=== PATIENT | male | born 1950 | race Caucasian/White ===

== ENCOUNTER 2017-02-14 08:00 | Outpatient (CLI) | payer MEDICARE, OTHER ==
[2017-02-15 12:05] LABS: BASOPHILS # (AUTO) 0.1 10^3/uL (0.0-0.1); BASOPHILS % (AUTO) 0.8 %; EOSINOPHILS # (AUTO) 0.2 10^3/uL (0.0-0.7); EOSINOPHILS % (AUTO) 2.2 %; HCT - HEMATOCRIT 51.2 % (42.0-52.0); HGB - HEMOGLOBIN 16.8 g/dL (14.0-18.0); LYMPHOCYTES # (AUTO) 1.6 10^3/uL (1.5-3.5); LYMPHOCYTES % (AUTO) 17.9 %; MEAN CORPUSCULAR HEMOGLOBIN 31.1 pg (27.0-31.0); MEAN CORPUSCULAR HGB CONC 32.8 g/dL (32.0-36.0); MEAN CORPUSCULAR VOLUME 94.8 fL (80.0-94.0); MEAN PLATELET VOLUME 8.9 fL (7.4-11.4); MONOCYTES # (AUTO) 0.9 10^3/uL (0.0-1.0); MONOCYTES % (AUTO) 10.3 %; NEUTROPHILS # (AUTO) 6.3 10^3/uL (1.5-6.6); NEUTROPHILS % (AUTO) 68.8 %; NUCLEATED RED BLOOD CELLS AUTO 0.1 /100WBC; RED CELL DISTRIBUTION WIDTH 14.7 % (12.0-15.0); UNCORRECTED WHITE BLOOD COUNT 9.2 x10^3/uL; WHITE BLOOD COUNT 9.2 x10^3/uL (4.8-10.8)
[2017-02-15 12:10] LABS: ALBUMIN/GLOBULIN RATIO 1.1 (1.0-2.2); BILIRUBIN,TOTAL 0.8 mg/dL (0.2-1.0); CALCIUM 9.7 mg/dL (8.5-10.3); CREATININE 1.5 mg/dL (0.6-1.2); INR 1.1 (0.8-1.2); POTASSIUM 5.1 mmol/L (3.5-5.0); PT - PROTHROMBIN TIME 12.5 secs (9.9-12.6); TOTAL PROTEIN 7.5 g/dL (6.7-8.2)
[2017-02-15 12:37] LABS: PARTIAL THROMBOPLASTIN TIME 26.8 secs (24.9-33.3)
== END 2017-02-14 08:01 | disposition home or self-care (01) ==
LOC: LAB.F 08:00
PROVIDERS: ATTEND Internal Medicine
DX: R51 Headache (principal)
CPT/HCPCS: 36415; 80053; 85025; 85610; 85730

== ENCOUNTER 2017-02-15 11:52 | Outpatient (CLI) | payer MEDICARE ==
--- NOTE | 2017-02-15 12:43 | CT Report ---
CT BRAIN WITHOUT CONTRAST: 02/15/2017 CLINICAL INDICATION: Occipital headache. TECHNIQUE: Axial CT images of the brain were obtained without intravenous contrast. No previous CT is available for comparison. In accordance with CT protocol optimization, one or more of the following dose reduction techniques w ere utilized for this exam: automated exposure control, adjustment of mA and/or KV based on patient size, or use of iterative reconstructive technique. FINDINGS: The ventricles and sulci are normal in size, shape, and configuration. The basilar cister ns are patent. There is no evidence of hemorrhage, mass effect, or midline shift. The visualized or bital contents are unremarkable. There is mucosal thickening in the left maxillary sinus and ethmoid air cells, compatible with chronic sinus disease. IMPRESSION: CHRONIC LEFT-SIDED SINUS DISEASE. OTHERWISE, NORMAL CT OF THE BRAIN WITHOUT CONTRAST. JOB #: [id number] EXT JOB #:[id number]
== END 2017-02-15 11:53 | disposition home or self-care (01) ==
LOC: DI 11:52
PROVIDERS: ATTEND Internal Medicine
DX: R51 Headache (principal); J32.9 Chronic sinusitis, unspecified
CPT/HCPCS: 70450

== ENCOUNTER 2017-05-12 14:16 | Outpatient (CLI) | payer MEDICARE ==
[2017-05-12 14:51] LABS: CALCIUM 9.5 mg/dL (8.5-10.3); CREATININE 1.3 mg/dL (0.6-1.2); POTASSIUM 4.7 mmol/L (3.5-5.0)
== END 2017-05-12 14:17 | disposition home or self-care (01) ==
LOC: LAB 14:16
PROVIDERS: ATTEND Internal Medicine
DX: R79.89 Other specified abnormal findings of blood chemistry (principal)
CPT/HCPCS: 36415; 80048

== ENCOUNTER 2019-09-23 13:24 | Emergency (ER) | payer MEDICARE ==
--- NOTE | 2019-09-23 14:16 | ED Physician Documentation ---
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 He has a longstanding pornography addiction and a few days ago relapsed into that habit. His of 30 years found out and requested divorce. Today he drove to a park and in a suicide attempt tried to cut his left wrist but after a couple of hours was unable to find the radial artery. He drove home and subsequently told his who brought him here for stitching.) Review of Systems Ten Systems: 10 systems reviewed and negative Constitutional: reports: Reviewed and negative Nose: reports: Reviewed and negative Cardiac: reports: Reviewed and negative Respiratory: reports: Reviewed and negative PD PAST MEDICAL HISTORY - Past Medical History Past Medical History: Yes Cardiovascular: Hypertension, Arrhythmia Respiratory: None Neuro: None Endocrine/Autoimmune: None GI: None : None HEENT: None Psych: Depression Musculoskeletal: Gout Derm: None - Past Surgical History Past Surgical History: Yes Cardiovascular: Pacemaker Derm: Skin cancer surgery - Present Medications Home Medications: Ambulatory Orders Medication Instructions Recorded Confirmed Lisinopril 20 mg PO DAILY 02/25/14 12/09/15 Metoprolol Succinate [Toprol Xl] 25 mg PO ONCE 02/25/14 12/09/15 Sertraline HCl [Zoloft] 25 mg PO DAILY 02/25/14 12/09/15 allopurinoL [Allopurinol] 100 mg PO DAILY 02/25/14 12/09/15 traZODone [Desyrel] 50 mg ORAL DAILY 01/27/15 12/09/15 metFORMIN [Glucophage] 1,000 mg ORAL DAILY 12/09/15 12/09/15 - Allergies Allergies/Adverse Reactions: Allergies Allergy/AdvReac Type Severity Reaction Status Date / Time No Known Drug Allergies Allergy Verified 09/23/19 13:33 - Social History Does the pt smoke?: No Smoking Status: Never smoker Does the pt drink ETOH?: Yes Does the pt have substance abuse?: Yes - Immunizations Immunizations are current?: Yes - POLST Patient has POLST: No PD ED PE NORMAL - Vitals Vital signs reviewed: Yes - General General: Alert and oriented X 3, No acute distress - HEENT HEENT: PERRL, EOMI - Neck Neck: Supple, no meningeal sign, No bony TTP - Cardiac Cardiac: RRR, No murmur - Respiratory Respiratory: No respiratory distress, Clear bilaterally - Abdomen Abdomen: Normal bowel sounds, Soft, Non tender - Back Back: No CVA TTP, No spinal TTP - Derm Derm: Normal color, Warm and dry - Extremities Extremities: Other (There are 2 fairly deep parallel incisions in the left wrist. He was fairly central and therefore to medial to have hit the radial artery. Radial pulses normal. Flexion in all the digits is normal and romario rovascular function in all the fingers is normal.) - Neuro Neuro: Alert and oriented X 3, No motor deficit, No sensory deficit, Normal speech Results - Vitals Vitals: Vital Signs - 24 hr 09/23/19 13:33 Temperature 36.8 C Heart Rate 80 Respiratory 16 Rate Blood Pressure 170/84 H O2 Saturation 100 Oxygen O2 Source Room air - EKG (time done) 1408 Rate: Rate (enter#) (72) Rhythm: Paced Computer interpretation: Agree with computer - Labs Labs: Laboratory Tests 09/23/19 09/23/19 09/23/19 14:12 14:12 14:12 WBC 5.8 RBC 5.28 Hgb 16.8 Hct 48.9 MCV 92.6 MCH 31.8 H MCHC 34.4 RDW 13.2 Plt Count 197 MPV 10.0 Neut # (Auto) 4.7 Lymph # (Auto) 0.7 L [place] # (Auto) 0.4 Eos # (Auto) 0.0 Baso # (Auto) 0.0 Absolute Nucleated RBC 0.00 Nucleated RBC % 0.0 Sodium 134 L Potassium 5.0 Chloride 103 Carbon Dioxide 22 Anion Gap 9.0 BUN 30 H Creatinine 1.4 H Estimated GFR (MDRD) 51 L Glucose 108 H Calcium 8.6 Total Bilirubin 0.9 AST 41 ALT 43 Alkaline Phosphatase 55 Total Protein 7.7 Albumin 4.4 Globulin 3.3 Albumin/Globulin Ratio 1.3 Lipase 48 TSH 6.33 H Urine Color Urine Clarity Urine pH Ur Specific [place] Urine Protein Urine Glucose (UA) Urine Ketones Urine Occult Blood Urine Nitrite Urine Bilirubin Urine Urobilinogen Ur Leukocyte Esterase Urine RBC Urine WBC Ur Squamous Epith Cells Urine Bacteria Ur Microscopic Review Urine Culture Comments Salicylates < 6.0 Urine Opiates Screen Ur Oxycodone Screen Urine Methadone Screen Ur Propoxyphene Screen Acetaminophen < 10 L Ur Barbiturates Screen Ur Tricyclics Screen Ur Phencyclidine Scrn Ur Amphetamine Screen U Methamphetamines Scrn U Benzodiazepines Scrn Urine Cocaine Screen U Cannabinoids Screen Ethyl Alcohol < 5.0 09/23/19 14:20 WBC RBC Hgb Hct MCV MCH MCHC RDW Plt Count MPV Neut # (Auto) Lymph # (Auto) [place] # (Auto) Eos # (Auto) Baso # (Auto) Absolute Nucleated RBC Nucleated RBC % Sodium Potassium Chloride Carbon Dioxide Anion Gap BUN Creatinine Estimated GFR (MDRD) Glucose Calcium Total Bilirubin AST ALT Alkaline Phosphatase Total Protein Albumin Globulin Albumin/Globulin Ratio Lipase TSH Urine Color YELLOW Urine Clarity CLEAR Urine pH 5.5 Ur Specific [place] >=1.030 H Urine Protein 100 H Urine Glucose (UA) NEGATIVE Urine Ketones NEGATIVE Urine Occult Blood TRACE-INTA Urine Nitrite NEGATIVE Urine Bilirubin NEGATIVE Urine Urobilinogen 0.2 (NORMAL) Ur Leukocyte Esterase NEGATIVE Urine RBC None Seen Urine WBC 0-3 Ur Squamous Epith Cells RARE Squamous Urine Bacteria None Seen Ur Microscopic Review INDICATED Urine Culture Comments NOT INDICATED Salicylates Urine Opiates Screen NEGATIVE Ur Oxycodone Screen NEGATIVE Urine Methadone Screen NEGATIVE Ur Propoxyphene Screen NEGATIVE Acetaminophen Ur Barbiturates Screen NEGATIVE Ur Tricyclics Screen NEGATIVE Ur Phencyclidine Scrn NEGATIVE Ur Amphetamine Screen NEGATIVE U Methamphetamines Scrn NEGATIVE U Benzodiazepines Scrn NEGATIVE Urine Cocaine Screen NEGATIVE U Cannabinoids Screen NEGATIVE Ethyl Alcohol Procedures - Laceration (location) left wrist Length in cm: 7 Wound type: Other (Parallel lacerations on the anterior flexor surface of the left wrist, one was 4 cm and one was 3 cm.) Neurovascular status: Sensory intact, Motor intact, Vascular intact Tendon involvement: Tendon intact Anesthesia: Lidocaine 1%, With bicarb Wound Preparation: Irrigated copiously NS Skin layer closure: Nylon (4-0), Running Other: Tetanus booster given Complexity: Simple PD MEDICAL DECISION MAKING - ED course ED course: Patient seen by STEPHEN Knight. She agrees that he is high risk but does not plan on detaining this gentleman. Close outpatient follow-up was arranged. Departure - Departure Disposition: 01 Home, Self Care Clinical Impression: Suicide attempt Wrist laceration Qualifiers: Encounter type: initial encounter Laterality: left Qualified Code(s): S61.512A - Laceration without foreign body of left wrist, initial encounter Condition: Good Record reviewed to determine appropriate education?: Yes Instructions: ED Stress React, ED Laceration Hand Comments: Come back for any signs of infection which would include: Redness, swelling, drainage, increased pain, or fevers. You can wash it soap and water. Keep it covered and moist with bacitracin ointment which is available over the counter; avoid neosporin. Follow-up with your physician in 10-14 days for suture removal. Follow-up with your therapist tomorrow as you are planning to do. If you develop new or worsening symptoms please either return immediately for reevaluation or call the crisis line at [phone].
[2019-09-23 14:23] LABS: BASOPHILS % (AUTO) 0.3 %; EOSINOPHILS % (AUTO) 0.5 %; HGB - HEMOGLOBIN 16.8 g/dL (14.0-18.0); LYMPHOCYTES # (AUTO) 0.7 10^3/uL (1.5-3.5); LYMPHOCYTES % (AUTO) 12.7 %; MEAN CORPUSCULAR HEMOGLOBIN 31.8 pg (27.0-31.0); MEAN CORPUSCULAR HGB CONC 34.4 g/dL (32.0-36.0); MEAN CORPUSCULAR VOLUME 92.6 fL (80.0-94.0); MONOCYTES # (AUTO) 0.4 10^3/uL (0.0-1.0); MONOCYTES % (AUTO) 6.3 %; NEUTROPHILS # (AUTO) 4.7 10^3/uL (1.5-6.6); NEUTROPHILS % (AUTO) 79.9 %; PLT - PLATELET COUNT 197 10^3/uL (130-450); RED BLOOD COUNT 5.28 10^6/uL (4.70-6.10); RED CELL DISTRIBUTION WIDTH 13.2 % (12.0-15.0); WHITE BLOOD COUNT 5.8 x10^3/uL (4.8-10.8)
[2019-09-23] MEDS: BUFFERED LIDOCAINE 10 ML SYRINGE SUBQ STA (14:25)
[2019-09-23 14:29] LABS: MUDS CUTOFF CONCENTRATIONS CUTOFF CONC BELOW:
[2019-09-23 14:34] LABS: BILIRUBIN,URINE NEGATIVE (NEGATIVE); GLUCOSE, URINE (UA) NEGATIVE (NEGATIVE); KETONES,URINE (UA) NEGATIVE (NEGATIVE); LEUKOCYTE ESTERASE, URINE NEGATIVE (NEGATIVE); NITRITE,URINE NEGATIVE (NEGATIVE); OCCULT BLOOD,URINE TRACE-INTA (NEGATIVE); PH,URINE 5.5 PH (5.0-7.5); PROTEIN,URINE 100 mg/dL (NEGATIVE); UROBILINOGEN,URINE 0.2 (NORMAL) E.U./dL (NORMAL)
[2019-09-23 14:38] LABS: ACETAMINOPHEN < 10 ug/mL (10-30); ALBUMIN 4.4 g/dL (3.2-5.5); ALBUMIN/GLOBULIN RATIO 1.3 (1.0-2.2); ALKALINE PHOSPHATASE 55 IU/L (42-121); ALT ALANINE AMINOTRANSFERASE 43 IU/L (10-60); AST ASPARTATE AMINOTRANSFERASE 41 IU/L (10-42); BILIRUBIN,TOTAL 0.9 mg/dL (0.2-1.0); BUN - BLOOD UREA NITROGEN 30 mg/dL (6-20); CALCIUM 8.6 mg/dL (8.5-10.3); CARBON DIOXIDE - CO2 22 mmol/L (21-32); CHLORIDE 103 mmol/L (101-111); CREATININE 1.4 mg/dL (0.6-1.2); GLUCOSE 108 mg/dL (70-100); LIPASE 48 U/L (22-51); SALICYLATE < 6.0 mg/dL; SODIUM 134 mmol/L (135-145); TOTAL PROTEIN 7.7 g/dL (6.7-8.2)
[2019-09-23 14:40] LABS: CLARITY,URINE CLEAR (CLEAR)
[2019-09-23 14:42] LABS: AMPHETAMINE SCREEN,URINE NEGATIVE (NEGATIVE); BENZODIAZEPINES SCREEN, URINE NEGATIVE (NEGATIVE); COCAINE SCREEN URINE NEGATIVE (NEGATIVE); METHADONE SCREEN, URINE NEGATIVE (NEGATIVE); METHAMPHETAMINES SCREEN, URINE NEGATIVE (NEGATIVE); OPIATE SCREEN, URINE NEGATIVE (NEGATIVE); OXYCODONE SCREEN, URINE NEGATIVE (NEGATIVE); PROPOXYPHENE SCREEN, URINE NEGATIVE (NEGATIVE); TRICYCLIC ANTIDEPRESSANT,URINE NEGATIVE (NEGATIVE)
[2019-09-23 14:47] LABS: BACTERIA,URINE None Seen /HPF (None Seen); RBC,URINE None Seen /HPF (0-5); SQUAMOUS EPITHELIAL CELL,UR RARE Squamous (<= Few)
[2019-09-23] MEDS: TETANUS/DIPHTHERIA/PERTUSSIS 0.5 ML SYRINGE IM ONE (16:30)
[2019-09-23 17:42] VITALS: BP 155/78
== END 2019-09-23 17:41 | disposition home or self-care (01) ==
LOC: ED 13:24
DX: S61.512A Laceration without foreign body of left wrist, initial encounter (principal); X78.1XXA Intentional self-harm by knife, initial encounter; Y92.830 Public park as the place of occurrence of the external cause; Z95.0 Presence of cardiac pacemaker; I10 Essential (primary) hypertension; I49.9 Cardiac arrhythmia, unspecified
CPT/HCPCS: 12002; 36415; 80053; 80306; 80307; 80320; 80329; 81001; 81003; 83690; 84443; 85025; 87086; 90471; 93005; 99284

== ENCOUNTER 2019-11-09 10:23 | Outpatient (CLI) | payer MEDICARE ==
[2019-11-09 10:52] LABS: ALBUMIN/GLOBULIN RATIO 1.2 (1.0-2.2); ALKALINE PHOSPHATASE 74 IU/L (42-121); ALT ALANINE AMINOTRANSFERASE 36 IU/L (10-60); AST ASPARTATE AMINOTRANSFERASE 38 IU/L (10-42); BILIRUBIN,TOTAL 0.7 mg/dL (0.2-1.0); BUN - BLOOD UREA NITROGEN 28 mg/dL (6-20); CALCIUM 9.2 mg/dL (8.5-10.3); CARBON DIOXIDE - CO2 26 mmol/L (21-32); CHLORIDE 105 mmol/L (101-111); CHOL/HDL RATIO 4.3 (<5.0); CHOLESTEROL 168 mg/dL; CREATININE 1.3 mg/dL (0.6-1.2); GLUCOSE 97 mg/dL (70-100); HDL CHOLESTEROL 39 mg/dL; LDL CHOLESTEROL,CALCULATED 101 mg/dL; LDL/HDL RATIO 2.6 (<3.6); SODIUM 139 mmol/L (135-145); TOTAL PROTEIN 7.4 g/dL (6.7-8.2); URIC ACID 5.2 mg/dL (2.6-7.2); VLDL CHOLESTEROL 28 mg/dL
[2019-11-09 10:53] LABS: HB2 TOTAL 17.7 g/dL; HEMOGLOBIN A1C 0.7 g/dL; HEMOGLOBIN A1C % 5.8 % (4.6-6.2)
== END 2019-11-09 10:24 | disposition home or self-care (01) ==
LOC: LAB 10:23
PROVIDERS: ATTEND Internal Medicine
DX: M10.9 Gout, unspecified (principal); E11.40 Type 2 diabetes mellitus with diabetic neuropathy, unspecified
CPT/HCPCS: 36415; 80053; 80061; 83036; 83721; 84550

== ENCOUNTER 2021-04-03 13:11 | Outpatient (CLI) | payer MEDICARE | END 2021-04-03 13:12 | disposition home or self-care (01) | LOC: COV 13:11 | PROVIDERS: ATTEND Dermatology MOHS-Micrographic Surgery | DX: Z01.812 Encounter for preprocedural laboratory examination (principal); Z20.822 Contact with and (suspected) exposure to COVID-19 ==

== ENCOUNTER 2021-06-16 15:18 | Outpatient (CLI) | payer MEDICARE ==
--- NOTE | 2021-06-16 16:33 | Ultrasound Report ---
PROCEDURE: Duplex Ext Veins Left INDICATIONS: LEFT CALF PAIN TECHNIQUE: Real-time imaging, as well as color and pulse Doppler interrogation, were performed of the lower extr emity deep veins from the inguinal ligament to the popliteal fossa. COMPARISON: None. FINDINGS: The deep veins are normally compressible, and free of intraluminal thrombus. Color and pu lse Doppler demonstrate normal phasic intraluminal flow. There is normal augmentation response to di stal compression maneuver. IMPRESSION: No evidence of DVT in visualized left lower extremity veins. Reviewed by: Samson Smith MD on 06/16/2021 4:32 PM PST Approved by: Samson Smith MD on 06/16/2021 4:32 PM PST Station ID: [id number]
== END 2021-06-16 15:19 | disposition home or self-care (01) ==
LOC: DI 15:18
PROVIDERS: ATTEND Internal Medicine
DX: M79.662 Pain in left lower leg (principal)

== ENCOUNTER 2021-11-02 07:26 | Emergency (ER) | payer MEDICARE ==
[2021-11-02 08:13] LABS: BASOPHILS % (AUTO) 0.5 %; EOSINOPHILS % (AUTO) 0.7 %; HCT - HEMATOCRIT 47.6 % (42.0-52.0); HGB - HEMOGLOBIN 16.6 g/dL (14.0-18.0); LYMPHOCYTES # (AUTO) 0.7 10^3/uL (1.5-3.5); LYMPHOCYTES % (AUTO) 15.9 %; MEAN CORPUSCULAR HEMOGLOBIN 30.9 pg (27.0-31.0); MEAN CORPUSCULAR HGB CONC 34.9 g/dL (32.0-36.0); MEAN CORPUSCULAR VOLUME 88.5 fL (80.0-94.0); MEAN PLATELET VOLUME 10.4 fL (7.4-11.4); MONOCYTES # (AUTO) 0.5 10^3/uL (0.0-1.0); MONOCYTES % (AUTO) 12.3 %; NEUTROPHILS % (AUTO) 70.1 %; PLT - PLATELET COUNT 176 10^3/uL (130-450); RED BLOOD COUNT 5.38 10^6/uL (4.70-6.10); RED CELL DISTRIBUTION WIDTH 12.6 % (12.0-15.0); WHITE BLOOD COUNT 4.2 x10^3/uL (4.8-10.8)
[2021-11-02 08:22] LABS: INFECTIOUS MONONUCLEOSIS NEGATIVE (Negative)
--- NOTE | 2021-11-02 08:23 | ED Physician Documentation ---
History of Present Illness - Stated complaint Stated Complaint: FATIGUE - Chief complaint Chief Complaint: General - History obtained from History obtained from: Patient - Additonal information Additional information: The patient comes to the emergency department chief complaint of fatigue. He states that has been coming up over about the last week and that now, he feels so exhausted during the day that he feels like he just needs to lay down in his bed. The patient denies any lightheadedness or dizziness. He is not short of breath. He has not had any pain anywhere. The patient states that initially, he would feel the exhaustion after being physically active but now, he just feels tired all the time. He denies any nausea or vomiting. No diarrhea. He drinks plenty of water every day. He is a diabetic and states that he has been stable on metformin as far as he knows for a long time. He does not check his sugars regularly, however, so he is not sure how they have been running. The patient denies any fevers or chills. No cough or other signs of illness. He states that nobody else has been sick that he has been exposed to and he lives alone. No other complaints at this time. Review of Systems Ten Systems: 10 systems reviewed and negative Constitutional: reports: Fatigue Eyes: reports: Reviewed and negative Ears: reports: Reviewed and negative Nose: reports: Reviewed and negative Throat: reports: Reviewed and negative Cardiac: reports: Reviewed and negative Respiratory: reports: Reviewed and negative GI: reports: Reviewed and negative : reports: Reviewed and negative Skin: reports: Reviewed and negative Musculoskeletal: reports: Reviewed and negative Neurologic: reports: Reviewed and negative Psychiatric: reports: Reviewed and negative Endocrine: reports: Reviewed and negative Immunocompromised: reports: Reviewed and negative PD PAST MEDICAL HISTORY - Past Medical History Past Medical History: Yes Cardiovascular: Hypertension, Arrhythmia Respiratory: Sleep apnea, CPAP use Neuro: None Endocrine/Autoimmune: Type 2 diabetes GI: None : None HEENT: None Psych: Depression Musculoskeletal: Gout Derm: None - Past Surgical History Past Surgical History: Yes Ortho: Hip replacement Cardiovascular: Pacemaker Derm: Skin cancer surgery - Present Medications Home Medications: Ambulatory Orders Medication Instructions Recorded Confirmed Lisinopril 20 mg PO DAILY 02/25/14 11/02/21 Sertraline HCl [Zoloft] 25 mg PO DAILY 02/25/14 11/02/21 allopurinoL [Allopurinol] 100 mg PO DAILY 02/25/14 11/02/21 traZODone [Desyrel] 50 mg ORAL DAILY PM 01/27/15 11/02/21 metFORMIN [Glucophage] 1,000 mg ORAL DAILY 12/09/15 11/02/21 Atorvastatin [Lipitor] 20 mg ORAL DAILY PM 11/02/21 11/02/21 Levothyroxine [Synthroid] 125 mcg PO QDAC #90 tablet 11/02/21 - Allergies Allergies/Adverse Reactions: Allergies Allergy/AdvReac Type Severity Reaction Status Date / Time No Known Drug Allergies Allergy Verified 11/02/21 07:35 - Social History Does the pt smoke?: No Smoking Status: Never smoker Does the pt drink ETOH?: Yes Does the pt have substance abuse?: Yes - Immunizations Immunizations are current?: Yes - POLST Patient has POLST: No PD ED PE NORMAL - Vitals Vital signs reviewed: Yes - General General: Alert and oriented X 3, No acute distress, Well developed/nourished - HEENT HEENT: Atraumatic, PERRL, EOMI, Moist mucous membranes - Neck Neck: Supple, no meningeal sign - Cardiac Cardiac: RRR, No murmur, Strong equal pulses - Respiratory Respiratory: No respiratory distress, Clear bilaterally - Abdomen Abdomen: Soft, Non tender, Non distended - Derm Derm: Normal color, Warm and dry, No rash - Extremities Extremities: No deformity, No edema - Neuro Neuro: Alert and oriented X 3, food beverage supervisor 2-12 intact, Normal speech - Psych Psych: Normal mood, Normal affect Results - Vitals Vitals: Vital Signs - 24 hr 11/02/21 11/02/21 08:35 09:11 Heart Rate 70 70 Respiratory 12 10 L Rate Blood Pressure 139/70 H 133/68 H O2 Saturation 98 97 Oxygen O2 Source Room air - Labs Labs: Laboratory Tests 11/02/21 11/02/21 11/02/21 08:00 08:00 08:00 WBC 4.2 L RBC 5.38 Hgb 16.6 Hct 47.6 MCV 88.5 MCH 30.9 MCHC 34.9 RDW 12.6 Plt Count 176 MPV 10.4 Neut # (Auto) 3.0 Lymph # (Auto) 0.7 L [place] # (Auto) 0.5 Eos # (Auto) 0.0 Baso # (Auto) 0.0 Absolute Nucleated RBC 0.00 Nucleated RBC % 0.0 Sodium 135 Potassium 4.9 Chloride 99 L Carbon Dioxide 22 Anion Gap 14.0 H BUN 28 H Creatinine 1.9 H Estimated GFR (MDRD) 35 L Glucose 102 H Calcium 9.2 Total Bilirubin 1.0 AST 42 ALT 39 Alkaline Phosphatase 56 Total Protein 7.4 Albumin 4.2 Globulin 3.2 Albumin/Globulin Ratio 1.3 Lipase 58 H TSH Urine Color Urine Clarity Urine pH Ur Specific [place] Urine Protein Urine Glucose (UA) Urine Ketones Urine Occult Blood Urine Nitrite Urine Bilirubin Urine Urobilinogen Ur Leukocyte Esterase Urine RBC Urine WBC Ur Squamous Epith Cells Urine Bacteria Ur Microscopic Review Urine Culture Comments Nasal Adenovirus (PCR) Nasal B. parapertussis DNA (PCR) Nasal Coronavir 229E PCR Nasal Coronavir HKU1 PCR Nasal Coronavir NL63 PCR Nasal Coronavir OC43 PCR Nasal Enterovir/Rhinovir PCR Nasal Influenza B PCR Nasal Influenza A PCR Nasal Parainfluen 1 PCR Nasal Parainfluen 2 PCR Nasal Parainfluen 3 PCR Nasal Parainfluen 4 PCR Nasal RSV (PCR) Nasal B.pertussis DNA PCR Nasal C.pneumoniae (PCR) Richard Human Metapneumo PCR Nasal M.pneumoniae (PCR) Nasal SARS-CoV-2 (PCR) Infectious [place] Assay NEGATIVE 11/02/21 11/02/21 11/02/21 08:00 08:15 08:20 WBC RBC Hgb Hct MCV MCH MCHC RDW Plt Count MPV Neut # (Auto) Lymph # (Auto) [place] # (Auto) Eos # (Auto) Baso # (Auto) Absolute Nucleated RBC Nucleated RBC % Sodium Potassium Chloride Carbon Dioxide Anion Gap BUN Creatinine Estimated GFR (MDRD) Glucose Calcium Total Bilirubin AST ALT Alkaline Phosphatase Total Protein Albumin Globulin Albumin/Globulin Ratio Lipase TSH 8.17 H Urine Color DARK YELLOW Urine Clarity CLEAR Urine pH 5.5 Ur Specific [place] 1.020 Urine Protein 100 H Urine Glucose (UA) NEGATIVE Urine Ketones NEGATIVE Urine Occult Blood SMALL H Urine Nitrite NEGATIVE Urine Bilirubin NEGATIVE Urine Urobilinogen 0.2 (NORMAL) Ur Leukocyte Esterase NEGATIVE Urine RBC 0-5 Urine WBC 0-3 Ur Squamous Epith Cells FEW Squamous Urine Bacteria Few Ur Microscopic Review INDICATED Urine Culture Comments NOT INDICATED Nasal Adenovirus (PCR) NOT DETECTED Nasal B. parapertussis DNA (PCR) NOT DETECTED Nasal Coronavir 229E PCR NOT DETECTED Nasal Coronavir HKU1 PCR NOT DETECTED Nasal Coronavir NL63 PCR NOT DETECTED Nasal Coronavir OC43 PCR NOT DETECTED Nasal Enterovir/Rhinovir PCR NOT DETECTED Nasal Influenza B PCR NOT DETECTED Nasal Influenza A PCR NOT DETECTED Nasal Parainfluen 1 PCR NOT DETECTED Nasal Parainfluen 2 PCR NOT DETECTED Nasal Parainfluen 3 PCR NOT DETECTED Nasal Parainfluen 4 PCR NOT DETECTED Nasal RSV (PCR) NOT DETECTED Nasal B.pertussis DNA PCR NOT DETECTED Nasal C.pneumoniae (PCR) NOT DETECTED Richard Human Metapneumo PCR NOT DETECTED Nasal M.pneumoniae (PCR) NOT DETECTED Nasal SARS-CoV-2 (PCR) NOT DETECTED Infectious [place] Assay - Rads (name of study) Chest x-ray Radiology: Final report received, EMP read indepedently, See rad report (Negative) CT abdomen pelvis Radiology: Final report received, EMP read indepedently, See rad report (Negative) PD MEDICAL DECISION MAKING - ED course Complexity details: reviewed results, re-evaluated patient, considered differential, d/w patient ED course: The patient's symptoms were very nonspecific and so he was worked up broadly to try to determine what was causing him to feel so fatigued.Patient was given a liter 0.9 normal saline. His laboratory studies did show a significantly elevated TSH over 8. He also had some mild renal insufficiency. Chest x-ray and CT of the abdomen pelvis showed no evidence of malignancy. I discussed these findings with the patient and have given him a dose of levothyroxine here. I have also prescribed the same for the patient and emphasized the importance of follow-up. Departure - Departure Disposition: 01 Home, Self Care Clinical Impression: Hypothyroidism Qualifiers: Hypothyroidism type: unspecified Qualified Code(s): E03.9 - Hypothyroidism, unspecified Fatigue Qualifiers: Fatigue type: unspecified Qualified Code(s): R53.83 - Other fatigue Condition: Stable Instructions: ED Hypothyroidism Follow-Up: Josh Garcia MD [Provider Admit Priv/Credential] - Prescriptions: Levothyroxine [Synthroid] 125 mcg PO QDAC #90 tablet Comments: Extensive testing was done today, including blood work, urinalysis, and imaging to evaluate for any possibility of cancer. Most of your testing actually looks quite good, except that you have some moderate slowing of your kidneys, most likely from your diabetes, and you also appear to have very low function of your thyroid gland. This can make you feel extremely exhausted, and is most likely at very least contributing to the fatigue you have been feeling. You have been started on thyroid hormone replacement from the emergency department, and should get your prescription filled for the thyroid hormone replacement to take at home today. This should be taken each morning before you eat. You will need to follow-up with your primary doctor to determine whether the current dose is enough or whether you need to have a higher dose. Please call as soon as possible to make that appointment. If you do not have a primary doctor, and please call the clinic numbers given to get established. Discharge Date/Time: 11/02/21 09:30
[2021-11-02 08:27] LABS: BILIRUBIN,URINE NEGATIVE (NEGATIVE); GLUCOSE, URINE (UA) NEGATIVE (NEGATIVE); KETONES,URINE (UA) NEGATIVE (NEGATIVE); LEUKOCYTE ESTERASE, URINE NEGATIVE (NEGATIVE); NITRITE,URINE NEGATIVE (NEGATIVE); OCCULT BLOOD,URINE SMALL (NEGATIVE); PH,URINE 5.5 PH (5.0-7.5); PROTEIN,URINE 100 mg/dL (NEGATIVE); UROBILINOGEN,URINE 0.2 (NORMAL) E.U./dL (NORMAL)
[2021-11-02] MEDS ORDERED: SODIUM CHLORIDE 0.9% 1,000 ML IV STA (08:29)
[2021-11-02 08:31] LABS: CLARITY,URINE CLEAR (CLEAR)
--- NOTE | 2021-11-02 08:31 | XRAY Report ---
PROCEDURE: Chest 1 View X-Ray INDICATIONS: chest pain COMMENTS: CHEST PAIN/ PT STATES FATIGUE PRIORS: NONE TECHNIQUE: One view of the chest was acquired. COMPARISON: None FINDINGS: Surgical changes and devices: Left chest wall pacer is well-positioned. Lungs and pleura: No pleural effusions or pneumothorax. Lungs are clear. Mediastinum: Mediastinal contours appear normal. Heart size is normal. Bones and chest wall: No suspicious bony lesions. Overlying soft tissues appear unremarkable. IMPRESSION: No acute cardiopulmonary abnormality. Reviewed by: Luis Louis on 11/02/2021 8:30 AM PDT Approved by: Luis Louis on 11/02/2021 8:30 AM PDT Station ID: [id number]
[2021-11-02 08:34] LABS: ALBUMIN 4.2 g/dL (3.2-5.5); ALBUMIN/GLOBULIN RATIO 1.3 (1.0-2.2); CALCIUM 9.2 mg/dL (8.5-10.3); CREATININE 1.9 mg/dL (0.6-1.2); POTASSIUM 4.9 mmol/L (3.5-5.0); TOTAL PROTEIN 7.4 g/dL (6.7-8.2)
[2021-11-02 08:41] LABS: BACTERIA,URINE Few /HPF (None Seen); RBC,URINE 0-5 /HPF (0-5); SQUAMOUS EPITHELIAL CELL,UR FEW Squamous (<= Few); WBC,URINE 0-3 /HPF (0-3)
--- NOTE | 2021-11-02 08:48 | CT Report ---
PROCEDURE: Abdomen/Pelvis WO INDICATIONS: deeply fatigued, possible cancer TECHNIQUE: Noncontrast 5 mm thick sections acquired from the diaphragms to the symphysis. 5 mm coronal and sagi ttal reformats were then performed. For radiation dose reduction, the following was used: automated exposure control, adjustment of mA and/or kV according to patient size. COMPARISON: None. FINDINGS: Image quality: Excellent. ABDOMEN: Lung bases: Lung bases are clear. Heart size is normal. Solid organs: Liver is normal in size. Gallbladder is normal. The spleen appears enlarged. Pancrea s is normal in contours. No adrenal nodules. Kidneys are normal in size, without hydronephrosis or nephrolithiasis. Peritoneum and bowel: Unenhanced bowel loops demonstrate normal wall thickness and caliber. No free fluid or air. The appendix is normal. Nodes and vessels: No retroperitoneal or mesenteric adenopathy by size criteria. Aorta and inferior vena cava are normal in caliber. The aorta has atherosclerotic calcifications with a normal caliber . Miscellaneous: No ventral hernias. PELVIS: Genitourinary: Bladder wall thickness is normal. Miscellaneous: No inguinal hernias or adenopathy. Bones: No suspicious bony lesions. No vertebral body compression fractures. Mild multilevel degener ative changes. IMPRESSION: 1. No acute abnormality. 2. Splenomegaly. Reviewed by: Luis Louis on 11/02/2021 8:46 AM PDT Approved by: Luis Louis on 11/02/2021 8:46 AM PDT Station ID: [id number]
[2021-11-02] MEDS ORDERED: LEVOTHYROXINE 125 MCG TABLET PO STA (09:02)
[2021-11-02 09:11] VITALS: BP 133/68
[2021-11-02 09:11] LABS: B. PARAPERTUSSIS- RESP PCR PAN NOT DETECTED; B. PERTUSSIS- RESP PCR PANEL NOT DETECTED; C. PNEUMONIAE- RESP PCR PANEL NOT DETECTED; CORONAVIRUS 229E-RESP PCR NOT DETECTED; CORONAVIRUS HKU1-RESP PCR NOT DETECTED; CORONAVIRUS NL63-RESP PCR NOT DETECTED; CORONAVIRUS OC43-RESP PCR NOT DETECTED; HUMAN METAPNEUMOVIRUS NOT DETECTED; INFLUENZA A- RESP PCR PANEL NOT DETECTED; INFLUENZA B - RESP PCR PANEL NOT DETECTED; M. PNEUMONIAE- RESP PCR PANEL NOT DETECTED; PARAINFLUENZA VIRUS 1 NOT DETECTED; PARAINFLUENZA VIRUS 2 NOT DETECTED; PARAINFLUENZA VIRUS 3 NOT DETECTED; PARAINFLUENZA VIRUS 4 NOT DETECTED; RHINOVIRUS/ENTEROVIRUS NOT DETECTED; RSV- RESP PCR PANEL NOT DETECTED; SARS-CoV-2 -RESP PCR PANEL NOT DETECTED
== END 2021-11-02 09:30 | disposition home or self-care (01) ==
LOC: ED 07:26
DX: E03.9 Hypothyroidism, unspecified (principal); E11.9 Type 2 diabetes mellitus without complications; Z79.84 Long term (current) use of oral hypoglycemic drugs; I10 Essential (primary) hypertension; Z95.0 Presence of cardiac pacemaker; Z20.822 Contact with and (suspected) exposure to COVID-19
CPT/HCPCS: 36415; 71045; 74176; 80053; 81001; 83690; 84443; 85025; 86308; 87633; 93005; 96360; 99283; 99284; A9270; 81003; 87086

== ENCOUNTER 2023-07-12 07:15 | Outpatient (CLI) | payer MEDICARE ==
[2023-07-12 07:41] LABS: CREATININE 1.5 mg/dL (0.6-1.3)
[2023-07-12] MEDS ORDERED: iohexoL-300 100 ML VIAL ONE (08:22)
[2023-07-12] MEDS: iohexoL-300 100 ML VIAL IVP ONE (10:28)
--- NOTE | 2023-07-12 11:51 | CT Report ---
PROCEDURE: Chest W INDICATIONS: SQUAMOUS CELL CARCINOMA CONTRAST: Omni 300 100ml TECHNIQUE: After the administration of intravenous contrast, a CT scan of the chest was performed. Images were recorded and evaluated at appropriate window settings. Reformats: axial MIP of the chest, coronal and sagittal. For radiation dose reduction, the following was used: automated exposure control, adjustme nt of mA and/or kV according to patient size. COMPARISON: None. FINDINGS: Image quality: Diagnostic Lungs and pleura:Scattered scarring and atelectasis. There is no cyst overtly suspicious pulmonary no dule. Granulomas and micronodules are present, overall low suspicion. For example right costophrenic angle . Attention on follow-up. Mediastinum, heart, and esophagus: Possible tiny hiatal hernia. Heart size is borderline enlarged. Th ere are coronary calcifications. A left chest wall pulse generator electrode leads are in place. Ther e is an indeterminate borderline enlarged precarinal lymph node measuring 1.1 cm (240). Chest wall and thyroid: Findings are separately dictated. Chest wall is unremarkable. Upper abdomen: Possible hepatic steatosis. No gross abnormality in the partially visualized abdomen. Possible liver cysts. Bones: Degenerative changes, no acute or suspicious findings. IMPRESSION: No definite active disease identified in the lungs or pleura. Borderline enlarged mediastinal lymph nodes, index precarinal node measures 1.1 cm in short axis. Sandrine se attention on follow-up in the setting of malignancy history. Other findings as above. Reviewed by: Sudhakar Paredes MD on 07/12/2023 11:50 AM PST Approved by: Sudhakar Paredes MD on 07/12/2023 11:50 AM PST Station ID: [id number]
--- NOTE | 2023-07-12 13:36 | CT Report ---
PROCEDURE: Soft Tissue Neck W INDICATIONS: SQUAMOUS CELL CARCINOMA CONTRAST: Omni 300 100ml TECHNIQUE: After the administration of intravenous contrast, 3.0 mm axial sections acquired from the sella to th e aortic arch. Additional oblique axial 3.0 mm sections acquired through the pharynx. 3 mm thick co dee reformats were generated. For radiation dose reduction, the following was used: automated exp osure control, adjustment of mA and/or kV according to patient size. COMPARISON: Correlation is made with the accompanying imaging. FINDINGS: Image quality: There is streak artifact seen through the level of the shoulders. Lymph nodes: No enlarged lymph nodes seen throughout the neck. Vessels: Visualized vasculature appears patent. Neck spaces: The oropharynx, nasopharynx, and pharynx demonstrate no mucosal lesions. The vocal cor ds, false vocal cords, pyriform sinuses, epiglottis, vallecula, and tongue base all appear normal. E xtramucosal spaces appear unremarkable. Glands: The parotid and submandibular glands appear normal. The thyroid is normal in size and there are no incidental findings. Miscellaneous: Visualized brain and orbits appear normal. Lung apices appear clear. Superficial so ft tissues appear normal. A left-sided pacer device is seen. Bones: No suspicious bony lesions. Visualized sinuses and mastoids appear unremarkable. IMPRESSION: No enlarged cervical lymph nodes are seen. No masses are seen on these images. Reviewed by: Georges Gupta MD on 07/12/2023 12:35 PM [facility] Approved by: Georges Gupta MD on 07/12/2023 12:35 PM [facility] Station ID: [id number]
== END 2023-07-12 07:16 | disposition home or self-care (01) ==
LOC: LAB 07:15
PROVIDERS: ATTEND Radiology Radiation Oncology
DX: C44.42 Squamous cell carcinoma of skin of scalp and neck (principal); R59.0 Localized enlarged lymph nodes; I51.7 Cardiomegaly; I25.10 Atherosclerotic heart disease of native coronary artery without angina pectoris; Z95.0 Presence of cardiac pacemaker
CPT/HCPCS: 36415; 70491; 71260; 82565; Q9967